=== PATIENT | male | born 1980 | race Native Hawaiian/Other Pacific Islander ===

== ENCOUNTER 2017-02-08 08:04 | Emergency (ER) | payer OTHER ==
[2017-02-08 08:11] VITALS: BP 131/65; PULSE 63; RESP 18; TEMP 98.7; O2SAT 98
[2017-02-08 09:28] LABS: BASO % 0.6 % (0.0-2.0); EOS # 0.3 K/uL (0.0-0.7); EOS % 3.8 % (0.0-4.0); HEMATOCRIT 42.5 % (35.0-51.0); LYMPH # 1.3 K/uL (1.0-4.3); LYMPH % 19.1 % (20.0-40.0); MEAN CELL VOLUME 88.8 fL (80.0-94.0); MEAN CORPUSCULAR HEMOGLOBIN 29.3 pg (27.0-31.0); MEAN CORPUSCULAR HGB CONC 33.1 g/dL (33.0-37.0); MEAN PLATELET VOLUME 7.2 fL (7.2-11.7); MONO # 0.7 K/uL (0.0-0.8); MONO % 10.4 % (0.0-10.0); RED CELL DISTRIBUTION WIDTH 13.2 % (11.5-14.5); WHITE BLOOD COUNT 6.9 K/uL (4.8-10.8)
[2017-02-08 09:34] LABS: CHLORIDE 100 mmol/L (98-107); POTASSIUM 4.3 mmol/L (3.6-5.2); SODIUM 139 mmol/L (132-148)
[2017-02-08 09:36] LABS: GFR AFRICAN-AMERICAN > 60
[2017-02-08 09:37] LABS: ALB/GLOB RATIO 1.3 (1.0-2.1); ALKALINE PHOSPHATASE 84 U/L (38-126); ALT/SGPT 46 U/L (21-72); AST/SGOT 37 U/L (17-59); BILIRUBIN,TOTAL 0.8 mg/dL (0.2-1.3); BLOOD UREA NITROGEN 21 mg/dL (9-20); CARBON DIOXIDE 29 mmol/L (22-30); GLUCOSE,RANDOM 101 mg/dL (75-110); TOTAL PROTEIN 7.1 g/dL (6.3-8.3)
[2017-02-08 09:38] LABS: CALCIUM 8.5 mg/dl (8.6-10.4)
--- NOTE | 2017-02-08 10:23 | CT ---
PROCEDURE: CT HEAD WITHOUT CONTRAST. HISTORY: R/O Bleed COMPARISON: None available. TECHNIQUE: Axial computed tomography images were obtained through the head/brain without intravenous contrast. Radiation dose: Total exam DLP = 897.52 mGy-cm. This CT exam was performed using one or more of the following dose reduction techniques: Automated exposure control, adjustment of the mA and/or kV according to patient size, and/or use of iterative reconstruction technique. FINDINGS: HEMORRHAGE: No acute parenchymal, subarachnoid or extra-axial hemorrhage. BRAIN: No mass effect or edema. No atrophy or chronic microvascular ischemic changes. VENTRICLES: Unremarkable. No hydrocephalus. CALVARIUM: No acute calvarial fractures. Old fracture deformity right lamina papyracea. PARANASAL SINUSES: Mild mucosal thickening seen within the ethmoid air complex. . MASTOID AIR CELLS: Unremarkable as visualized. No inflammatory changes. OTHER FINDINGS: None. IMPRESSION: No acute intracranial hemorrhage.
--- NOTE | 2017-02-08 10:40 | C.PDOC ---
History Of Present Illness 36-year-old male, presents to the emergency department with complaints of headache. Patient states he has been experiencing a generalized headache, intermittently for the past several weeks. Patient notes occasional pain behind left eye, and states that this is not the worst headache of his life. States he is concerned due to FMHx of benign tumor in father. Patient took a dose of Aleve prior to arrival, and headache has resolved. Denies photophobia, nausea/ vomiting, visual changes, dizziness, neck pain, speech changes or any other associated symptoms. No other complaints at this time. Chief Complaint (Nursing): Headache History Per: Patient History/Exam Limitations: no limitations Past Medical History Reviewed: Historical Data, Nursing Documentation, Vital Signs Vital Signs: Last Vital Signs Temp 98.7 F 02/08/17 08:08 Pulse 63 02/08/17 08:08 Resp 18 02/08/17 08:08 BP 131/65 02/08/17 08:08 Pulse Ox 98 02/08/17 10:47 - Medical History PMH: HTN, Hypercholesterolemia Family History: States: No Known Family Hx - Social History Hx Alcohol Use: No Hx Substance Use: No Review Of Systems Except As Marked, All Systems Reviewed And Found Negative. Constitutional: Negative for: Fever Eyes: Negative for: Vision Change Gastrointestinal: Negative for: Nausea, Vomiting Musculoskeletal: Negative for: Neck Pain, Back Pain Neurological: Positive for: Headache. Negative for: Weakness, Numbness, Change in Speech, Confusion, Dizziness Physical Exam - Physical Exam Appears: Non-toxic, No Acute Distress Skin: Warm, Dry, No Rash Head: Atraumatic, Normacephalic Eye(s): bilateral: Normal Inspection, PERRL, EOMI Nose: Normal Oral Mucosa: Moist Lips: Normal Appearing Neck: Normal ROM Cardiovascular: Rhythm Regular, No Murmur Respiratory: Normal Breath Sounds, No Accessory Muscle Use Neurological/Psych: Oriented x3, Normal Speech, Normal Cognition, Normal Cranial Nerves, Normal Motor, Normal Sensation, Other (no focal deficit) ED Course And Treatment - Laboratory Results Result Diagrams: 02/08/17 09:22 02/08/17 09:22 O2 Sat by Pulse Oximetry: 98 - CT Scan/US CT HEAD Other Rad Studies (CT/US): Read By Radiologist, Radiology Report Reviewed CT/US Interpretation: Accession No. : [id number]. Patient Name / ID : ALIX HORNER / [id number]. Exam Date : 02/08/2017 09:53:41 ( Approved ). Study Comment : Sex / Age : M / 36Y. Creator : Go Cr MD. Dictator : Go Cr MD. Wrap Turner : Brand Analyst : Go Cr MD. Approver2 : Report Date : 02/08/2017 10:22:16. My Comment : . PROCEDURE: CT HEAD WITHOUT CONTRAST. HISTORY: R/O Bleed. COMPARISON: None available. TECHNIQUE: Axial computed tomography images were obtained through the head/brain without intravenous contrast. Radiation dose: Total exam DLP = 897.52 mGy-cm. This CT exam was performed using one or more of the following dose reduction techniques: Automated exposure control, adjustment of the mA and/ or kV according to patient size, and/or use of iterative reconstruction technique. FINDINGS: HEMORRHAGE: No acute parenchymal, subarachnoid or extra- axial hemorrhage. BRAIN: No mass effect or edema. No atrophy or chronic microvascular ischemic changes. VENTRICLES: Unremarkable. No hydrocephalus. CALVARIUM: No acute calvarial fractures. Old fracture deformity right lamina papyracea. PARANASAL SINUSES: Mild mucosal thickening seen within the ethmoid air complex. . MASTOID AIR CELLS: Unremarkable as visualized. No inflammatory changes. OTHER FINDINGS: None. IMPRESSION: No acute intracranial hemorrhage Medical Decision Making Medical Decision Making: Impression 36y/o M w/ intermittent headache. Physical exam does not reveal any acute findings. No focal deficits. No headache at this time. Plan: * CMP * CBC * CT Head * Reassess and Disposition Progress: Patient is resting comfortably, is tolerating PO, and no longer has headache, no neurological deficit, photophobia, rash, fever, or nuchal rigidity. Patient was instructed to follow up with physician/clinic in 1-2 days. Asked to return immediately for any new or worsening symptoms. Disposition - Disposition Referrals: [facility], [Non-Staff] - Disposition: HOME/ ROUTINE Disposition Time: 10:20 Condition: GOOD Additional Instructions: Thank you for letting us take care of you today. Your provider was Dr. Miller. You were treated for [Diagnosis Here]. The emergency medical care you received today was directed at your acute symptoms. If you were prescribed any medication, please fill it and take as directed. It may take several days for your symptoms to resolve. Return to the Emergency Department if your symptoms worsen, do not improve, or if you have any other problems. Please contact your doctor or call one of the physicians/clinics you have been referred to that are listed on the Patient Visit Information form that is included in your discharge packet. Bring any paperwork you were given at discharge with you along with any medications you are taking to your follow up visit. Our treatment cannot replace ongoing medical care by a primary care provider (PCP) outside of the emergency department. Thank you for allowing the [facility] team to be part of your care today. Follow up with your doctor as scheduled. Return to the emergency room if you have any concerns. Instructions: Acute Headache (ED) - Clinical Impression Clinical Impression: Headache - Scribe Statement The provider has reviewed the documentation as recorded by the Christopher Andrea All medical record entries made by the Louisibjeremy were at my direction and personally dictated by me. I have reviewed the chart and agree that the record accurately reflects my personal performance of the history, physical exam, medical decision making, and the department course for this patient. I have also personally directed, reviewed, and agree with the discharge instructions and disposition.
== END 2017-02-08 10:33 | disposition home or self-care (01) ==
LOC: C.ER 08:04
DX: R51 Headache (principal); I10 Essential (primary) hypertension; E78.00 Pure hypercholesterolemia, unspecified